=== PATIENT | female | born 1975 | race African-American/Black ===

== ENCOUNTER 2019-06-16 00:28 | Emergency (ER) | payer SELFPAY ==
[~2019-06-16] VITALS: Ht 162.6 cm; Wt 70.2 kg
[2019-06-16] MEDS ORDERED: ACETAMINOPHEN 325MG TABLET PO ONE (01:45)
[2019-06-16 06:32] VITALS: BP 128/67
== END 2019-06-16 07:02 | disposition left against medical advice (07) ==
LOC: ER 00:28
DX: M54.9 Dorsalgia, unspecified (principal); E78.00 Pure hypercholesterolemia, unspecified; Z98.890 Other specified postprocedural states; Z88.1 Allergy status to other antibiotic agents
CPT/HCPCS: 99283

== ENCOUNTER 2019-06-16 19:44 | Emergency (ER) | payer SELFPAY ==
[~2019-06-16] VITALS: Ht 162.6 cm; Wt 70.8 kg
[2019-06-16 21:27] VITALS: BP 145/97
== END 2019-06-16 20:53 | disposition left against medical advice (07) ==
LOC: ER 19:44
DX: M54.9 Dorsalgia, unspecified (principal); Z53.21 Procedure and treatment not carried out due to patient leaving prior to being seen by health care provider

== ENCOUNTER 2019-06-17 03:03 | Emergency (ER) | payer SELFPAY ==
[~2019-06-17] VITALS: Ht 162.6 cm; Wt 70.6 kg
[2019-06-17 05:18] VITALS: BP 134/82
== END 2019-06-17 05:19 | disposition left against medical advice (07) ==
LOC: ER 03:03
DX: G89.29 Other chronic pain (principal); M54.5 Low back pain; E78.00 Pure hypercholesterolemia, unspecified; Z59.0 Homelessness; Z88.1 Allergy status to other antibiotic agents
CPT/HCPCS: 99283

== ENCOUNTER 2019-06-17 08:08 | Emergency (ER) | payer SELFPAY ==
[~2019-06-17] VITALS: Ht 165.1 cm; Wt 64.0 kg
[2019-06-17 08:14] VITALS: BP 136/87
== END 2019-06-17 09:00 | disposition left against medical advice (07) ==
LOC: ER 08:14
DX: Z53.21 Procedure and treatment not carried out due to patient leaving prior to being seen by health care provider (principal); Z59.0 Homelessness

== ENCOUNTER 2019-06-17 20:11 | Emergency (ER) | payer SELFPAY ==
[~2019-06-17] VITALS: Ht 165.1 cm; Wt 73.0 kg
[2019-06-18 13:55] VITALS: BP 139/71
== END 2019-06-18 14:01 | disposition home or self-care (01) ==
LOC: ER 20:11
DX: R53.1 Weakness (principal); E86.0 Dehydration; F17.290 Nicotine dependence, other tobacco product, uncomplicated; E78.00 Pure hypercholesterolemia, unspecified; Z59.0 Homelessness; Z88.1 Allergy status to other antibiotic agents
CPT/HCPCS: 99285; 99406

== ENCOUNTER 2019-06-18 22:44 | Emergency (ER) | payer MEDICAID ==
[~2019-06-18] VITALS: Ht 162.6 cm; Wt 74.0 kg
[2019-06-19 07:17] LABS: CLARITY URINE CLOUDY (CLEAR); COLOR URINE YELLOW (YELLOW); KETONES URINE TRACE (NEGATIVE); LEUKOCYTE ESTERASE URINE NEGATIVE (NEGATIVE); NITRITE URINE NEGATIVE (NEGATIVE); OCCULT BLOOD URINE 1+ (NEGATIVE); PROTEIN URINE TRACE (NEGATIVE); SPECIFIC GRAVITY URINE 1.025 (1.005-1.030)
[2019-06-19 10:04] VITALS: BP 136/74
== END 2019-06-19 10:43 | disposition home or self-care (01) ==
LOC: ER 22:44
DX: G89.29 Other chronic pain (principal); M54.89 Other dorsalgia; E78.00 Pure hypercholesterolemia, unspecified; Z59.0 Homelessness; Z88.1 Allergy status to other antibiotic agents
CPT/HCPCS: 81003; 99283

== ENCOUNTER 2019-06-20 06:45 | Emergency (ER) | payer MEDICAID ==
[~2019-06-20] VITALS: Ht 162.6 cm; Wt 66.0 kg
[2019-06-20 06:53] VITALS: BP 120/69
== END 2019-06-20 09:28 | disposition home or self-care (01) ==
LOC: ER 06:45
DX: Z59.0 Homelessness (principal); E78.00 Pure hypercholesterolemia, unspecified; Z88.1 Allergy status to other antibiotic agents
CPT/HCPCS: 99283

== ENCOUNTER 2019-06-25 20:00 | Emergency (ER) | payer MEDICAID ==
[~2019-06-25] VITALS: Ht 162.6 cm; Wt 73.0 kg
[2019-06-26] MEDS ORDERED: IBUPROFEN 400MG TABLET PO ONE (00:15)
[2019-06-26 06:30] VITALS: BP 129/81
== END 2019-06-26 09:16 | disposition home or self-care (01) ==
LOC: ER 20:00
DX: G89.29 Other chronic pain (principal); M54.5 Low back pain; E78.00 Pure hypercholesterolemia, unspecified; Z59.0 Homelessness; Z88.1 Allergy status to other antibiotic agents
CPT/HCPCS: 99282

== ENCOUNTER 2019-06-30 00:40 | Emergency (ER) | payer MEDICAID ==
[~2019-06-30] VITALS: Ht 162.6 cm; Wt 73.0 kg
[2019-06-30] MEDS ORDERED: IBUPROFEN 600MG TABLET PO ONE (06:15)
[2019-06-30 06:30] VITALS: BP 127/98
[2019-06-30 07:29] LABS: *AMPHETAMINES SCREEN URINE NEGATIVE (NEGATIVE); *BARBITURATES SCREEN URINE NEGATIVE (NEGATIVE)
[2019-06-30 07:30] LABS: *BENZODIAZEPINES SCREEN URINE NEGATIVE (NEGATIVE); *COCAINE SCREEN URINE NEGATIVE (NEGATIVE); CANNABINOID URINE SCREEN NEGATIVE (NEGATIVE); METHADONE URINE SCREEN NEGATIVE (NEGATIVE); PHENCYCLIDINE URINE SCREEN NEGATIVE (NEGATIVE)
== END 2019-06-30 08:20 | disposition home or self-care (01) ==
LOC: ER 00:40
DX: J02.9 Acute pharyngitis, unspecified (principal); E78.00 Pure hypercholesterolemia, unspecified; Z88.1 Allergy status to other antibiotic agents; Z88.8 Allergy status to other drugs, medicaments and biological substances
CPT/HCPCS: 80305; 81025; 87070; 87430; 99283

== ENCOUNTER 2019-07-01 21:59 | Emergency (ER) | payer MEDICAID ==
[~2019-07-01] VITALS: Ht 162.6 cm; Wt 73.0 kg
[2019-07-01 22:36] VITALS: BP 131/102
== END 2019-07-02 03:41 | disposition left against medical advice (07) ==
LOC: ER 21:59
DX: M54.5 Low back pain (principal); Z53.21 Procedure and treatment not carried out due to patient leaving prior to being seen by health care provider

== ENCOUNTER 2019-07-02 07:35 | Emergency (ER) | payer MEDICAID ==
[~2019-07-02] VITALS: Ht 162.6 cm; Wt 73.0 kg
[2019-07-02 11:15] VITALS: BP 129/81
[2019-07-02 11:30] LABS: CLARITY URINE CLEAR (CLEAR); COLOR URINE YELLOW (YELLOW); KETONES URINE NEGATIVE (NEGATIVE); LEUKOCYTE ESTERASE URINE NEGATIVE (NEGATIVE); NITRITE URINE NEGATIVE (NEGATIVE); OCCULT BLOOD URINE NEGATIVE (NEGATIVE); PH URINE 5.5 (4.5-8.0); PROTEIN URINE NEGATIVE (NEGATIVE); SPECIFIC GRAVITY URINE 1.023 (1.005-1.030); UROBILINOGEN URINE 0.2 E.U./dL (0.2-1.0)
== END 2019-07-02 12:33 | disposition left against medical advice (07) ==
LOC: ER 07:35
DX: Z59.0 Homelessness (principal); E78.00 Pure hypercholesterolemia, unspecified; Z88.1 Allergy status to other antibiotic agents; Z98.51 Tubal ligation status
CPT/HCPCS: 81003; 99283